=== PATIENT | female | born 1995 | race African-American/Black ===

== ENCOUNTER 2016-12-28 23:58 | Emergency (ER) | payer SELFPAY ==
[~2016-12-28] VITALS: Ht 157.5 cm; Wt 55.2 kg
[~2016-12-28 23:58] MED LIST: IRON325 M1 PO; MULTIVITAMINS1 EA11 PO; NAPROSYN500 MG PO; PRENATAL PLUS1 EAC3 PO; PRENATAL TABLE1 EAC3 PO; PROMETHAZINE HC25 M1 PO; SPRINTEC1 EACH PO; ZOFRAN ODT4 MG PO
[2016-12-29 00:27] LABS: HEMATOCRIT 40.1 % (36.0-46.0); MCHC 31.4 G/DL (30.0-36.0); MCV 85.9 FL (83-99); MEAN PLAT.VOLUME 11.7 uM^3 (9.5-12.4); PLATELET COUNT 239 K/uL (156-360); RBC DIS.WIDTH-CV 12.7 % (11.8-14.6); RBC DIS.WIDTH-SD 39.5 % (39-53); RED BLOOD COUNT 4.67 M/uL (3.80-5.20); WHITE BLOOD COUNT 6.6 K/uL (4.1-10.2)
[2016-12-29 00:39] LABS: CHLORIDE 104 mEq/L (99-109); POTASSIUM 3.6 mEq/L (3.7-5.4); SODIUM 140 mEq/L (136-147)
[2016-12-29 00:42] LABS: GLUCOSE 96 mg/dL (70-99)
[2016-12-29 00:43] LABS: ANION GAP 11 MEQ/L (2-14); TOTAL BILIRUBIN 0.7 mg/dL (0.0-1.0)
[2016-12-29 00:45] LABS: ALKALINE PHOSPHATASE 83 IU/L (3-129); GFR ESTIMATE (CALCULATED) > 59 mL/min/
[2016-12-29 00:46] LABS: UREA NITROGEN (BUN) 11 mg/dL (9-23)
[2016-12-29 00:55] LABS: QUANTITATIVE HCG < 4.0 MIU/ML
[2016-12-29 02:04] LABS: ADD MIUA? NO; BILIRUBIN NEGATIVE; BLOOD NEGATIVE; COLOR YELLOW ((YELLOW)); GLUCOSE (STRIP) NEGATIVE; KETONES NEGATIVE; LEUKOCYTES NEGATIVE; NITRITE NEGATIVE; PROTEIN (STRIP) NEGATIVE; SPECIFIC GRAVITY 1.017 (1.000-1.030); UCUL ADDED? NO; UROBILINOGEN 0.2 MG/DL (0.2-1.0)
[2016-12-29] MEDS ORDERED: ZOFRAN ODT4 MG PO (02:20)
[2016-12-29 02:26] VITALS: BP 125/68
== END 2016-12-29 02:33 | disposition home or self-care (01) ==
LOC: EME 23:58
DX: R10.30 Lower abdominal pain, unspecified (principal); R11.2 Nausea with vomiting, unspecified; R19.7 Diarrhea, unspecified; M54.9 Dorsalgia, unspecified
CPT/HCPCS: 80053; 81003; 84702; 85027; 99281; 99284

== ENCOUNTER 2017-12-07 05:30 | Emergency (ER) | payer SELFPAY ==
[~2017-12-07] VITALS: Ht 157.5 cm; Wt 58.2 kg
[2017-12-07] MEDS ORDERED: BACTROBAN OINTM22 GM TP (09:08)
[2017-12-07] MEDS ORDERED: KEFLEX500 MG PO (09:08)
[2017-12-07 09:37] VITALS: BP 113/83
== END 2017-12-07 09:37 | disposition home or self-care (01) ==
LOC: EME 05:30
DX: L73.9 Follicular disorder, unspecified (principal)
CPT/HCPCS: 99281; 99283

== ENCOUNTER 2018-02-07 20:16 | Emergency (ER) | payer OTHER ==
[~2018-02-07] VITALS: Ht 157.5 cm; Wt 57.3 kg
[~2018-02-07 20:16] MED LIST changes: +BACTROBAN OINTM22 GM TP; +KEFLEX500 MG PO
[2018-02-08 01:35] VITALS: BP 120/84
== END 2018-02-08 01:39 | disposition home or self-care (01) ==
LOC: EME 20:16
DX: S01.111A Laceration without foreign body of right eyelid and periocular area, initial encounter (principal); Y04.2XXA Assault by strike against or bumped into by another person, initial encounter; Y07.59 Other non-family member, perpetrator of maltreatment and neglect; Z23 Encounter for immunization
CPT/HCPCS: 70150; 99281; 99284

== ENCOUNTER 2018-02-21 20:00 | Emergency (ER) | payer SELFPAY ==
[~2018-02-21] VITALS: Ht 157.5 cm; Wt 57.1 kg
[2018-02-21 20:02] VITALS: BP 108/69
== END 2018-02-21 21:07 | disposition home or self-care (01) ==
LOC: EME 20:00
DX: S01.111D Laceration without foreign body of right eyelid and periocular area, subsequent encounter (principal)
CPT/HCPCS: 99281; 99283